=== PATIENT | female | born 1965 | race Caucasian/White ===

== ENCOUNTER 2024-06-21 20:19 | Inpatient (IN) | payer MEDICARE, OTHER ==
[~2024-06-21] VITALS: Ht 157.5 cm; Wt 57.0 kg
[2024-06-21] MEDS ORDERED: ACET-3117 PO (20:38)
[2024-06-21] MEDS ORDERED: OLAN15TA3 PO (20:38)
[2024-06-21] MEDS ORDERED: SENN8.6T19 PO (20:38)
[2024-06-21] MEDS ORDERED: OLAN10TA3 PO (20:38)
[2024-06-21] MEDS ORDERED: LITH450T2 PO (20:38)
[2024-06-21] MEDS ORDERED: CLON1TAB12 PO (20:38)
[2024-06-21] MEDS ORDERED: BISA10SU61 RC (20:38)
[2024-06-21] MEDS ORDERED: LITH300C2 PO (20:38)
[2024-06-21] MEDS ORDERED: CLON0.5T4 PO (20:38)
[2024-06-21 21:09] LABS: BASOPHILS % (AUTO) 0.4 % (0.0-2.0); EOSINOPHILS % (AUTO) 0.1 % (0.0-7.0); HEMATOCRIT 38.8 % (31.2-41.9); LYMPHOCYTES % (AUTO) 12.6 % (20.5-51.5); MEAN CORPUSCULAR HEMOGLOBIN 28.6 uug (24.7-32.8); MEAN CORPUSCULAR HGB CONC 33 g/dL (32.3-35.6); MEAN CORPUSCULAR VOLUME 85.9 fL (75.5-95.3); MONOCYTES # (AUTO) 0.8 K/uL (0.1-1.30); MONOCYTES % (AUTO) 10.1 % (0.0-11.0); NEUTROPHILS # (AUTO) 6.1 K/uL (1.8-8.9); NEUTROPHILS % (AUTO) 76.8 % (38.5-71.5); PLATELET COUNT (AUTO) 180 K/uL (179-408); RED BLOOD CELL COUNT(AUTO) 4.52 MIL/uL (3.63-4.92); RED CELL DISTRIBUTION WIDTH 14.5 % (12.3-17.7)
[2024-06-21 21:10] LABS: DIFFERENTIAL COMMENT 1
[2024-06-21 21:11] LABS: CALCIUM 10.2 mg/dL (8.5-10.1); CARBON DIOXIDE 35 mmol/L (21-32); CHLORIDE 100 mmol/L (98-107); CREATININE 0.8 mg/dL (0.6-1.3); GLUCOSE 101 mg/dL (74-106); POTASSIUM 3.5 mmol/L (3.5-5.1); SODIUM SERUM 140 mmol/L (136-145); UREA NITROGEN, BLOOD 16 mg/dL (7-18)
[2024-06-21] MEDS ORDERED: OLANZAPINE 10 MG VIAL IM ONE (21:22)
[2024-06-21 21:24] LABS: THYROID STIMULATING HORMONE 6.276 mIU/mL (0.358-3.740)
[2024-06-21 21:26] LABS: ETHANOL < 3 MG/DL (0-10)
[2024-06-21 21:31] LABS: ALANINE AMINOTRANSFERASE 17 U/L (14-59); ALBUMIN 3.1 g/dL (3.4-5.0); ALKALINE PHOSPHATASE 63 U/L (50-136); ASPARTATE AMINOTRANSFERASE 15 U/L (15-37); BILIRUBIN,DIRECT 0.1 mg/dL (0.0-0.2); BILIRUBIN,TOTAL 0.3 mg/dL (0.2-1.0); NT-PRO BNP 37 pg/mL (0-125); TOTAL PROTEIN, SERUM 6.7 g/dL (6.4-8.2)
[2024-06-21 21:32] LABS: ACETAMINOPHEN < 2.0 ug/mL (10-30)
[2024-06-21] MEDS: OLANZAPINE 10 MG VIAL IM ONE (22:00)
[2024-06-21 22:08] LABS: *BILIRUBIN,URIN NEGATIVE (NEGATIVE); *BLOOD, URINE 2+ (NEGATIVE); *COLOR,URINE Other (YELLOW); *KETONES,URINE NEGATIVE (NEGATIVE); *PROTEIN,URINE 1+ (NEGATIVE); *UROBILINOGEN,URINE 0.2 E.U./dl (NORMAL); LEUKOCYTE ESTERASE ,URINE 3+ (NEGATIVE); NITRITE, URINE NEGATIVE (NEGATIVE); PH,URINE 6.5 (5.0-8.0); UGLUCOSE NEGATIVE (NEGATIVE)
[2024-06-21 22:16] LABS: *CLARITY,URINE TURBID (CLEAR)
[2024-06-21] MEDS ORDERED: HALOPERIDOL LACTATE 5 MG/1 ML VIAL ONE (22:18)
[2024-06-21] MEDS: HALOPERIDOL LACTATE 5 MG/1 ML VIAL IM ONE (22:20)
[2024-06-21 22:27] LABS: BACTERIA,URINE MODERATE /HPF (NONE SEEN)
[2024-06-21 22:28] LABS: SQUAMOUS EPITHELIAL CELL,UR FEW /HPF (NONE SEEN); YEAST,URINE FEW /HPF (NONE SEEN)
[2024-06-21 22:29] LABS: MUCUS,URINE FEW /LPF (0-FEW)
[2024-06-21 22:30] LABS: *AMPHETAMINE, URINE NEGATIVE (NEGATIVE); *BARBITURATE, URINE NEGATIVE (NEGATIVE); *BENZODIAZEPINE, URINE NEGATIVE (NEGATIVE); *CANNABINOID, URINE NEGATIVE (NEGATIVE); *COCCAINE, URINE NEGATIVE (NEGATIVE); *OPIATE, URINE NEGATIVE (NEGATIVE); *PHENCYCLIDINE SCREEN,URINE NEGATIVE (NEGATIVE); FENTANYL, URINE NEGATIVE (NEGATIVE)
[2024-06-21] MEDS ORDERED: CEFTRIAXONE /D5W 50ML IVPB **ER PYXIS IV ONE (23:02)
[2024-06-21] MEDS: CEFTRIAXONE 1 G in IV DEXTROSE 5% 50 ML IV ONE (23:07)
[2024-06-21] MEDS ORDERED: IPRATROPIUM BROMIDE 0.5 MG/2.5 ML NEBU NEB PRN (23:15)
[2024-06-21] MEDS ORDERED: ONDANSETRON 4 MG/2 ML VIAL IV PRN (23:15)
[2024-06-21] MEDS ORDERED: ALBUTEROL SULFATE 2.5 MG/3 ML NEBU NEB PRN (23:15)
[2024-06-21] MEDS ORDERED: diphenhydrAMINE 50 MG/1 ML VIAL ONE (23:23)
[2024-06-21] MEDS: diphenhydrAMINE 50 MG/1 ML VIAL IM ONE (23:28)
[2024-06-21] MEDS ORDERED: Medication Not On Formulary EA (Acetaminophen 650 MG) PO PRN (23:30)
[2024-06-22] VITALS (8 sets, daily range): BP systolic 106–123; BP diastolic 61–86; TEMP 97.3–98.6; O2SAT 94–100
[2024-06-22] MEDS ORDERED: HALOPERIDOL LACTATE 5 MG/1 ML VIAL ONE (01:27)
[2024-06-22] MEDS: HALOPERIDOL LACTATE 5 MG/1 ML VIAL IM ONE (01:29)
[2024-06-22] MEDS: CLONAZEPAM 0.5 MG TABLET PO PRN (04:37)
[2024-06-22 07:06] LABS: BASOPHILS % (AUTO) 0.4 % (0.0-2.0); EOSINOPHILS % (AUTO) 0.2 % (0.0-7.0); HEMATOCRIT 37.2 % (31.2-41.9); HEMOGLOBIN 12.7 g/dL (10.9-14.3); LYMPHOCYTES % (AUTO) 15.8 % (20.5-51.5); MEAN CORPUSCULAR HEMOGLOBIN 29.1 uug (24.7-32.8); MEAN CORPUSCULAR HGB CONC 34 g/dL (32.3-35.6); MEAN CORPUSCULAR VOLUME 85.4 fL (75.5-95.3); MONOCYTES # (AUTO) 0.6 K/uL (0.1-1.30); MONOCYTES % (AUTO) 8.4 % (0.0-11.0); NEUTROPHILS % (AUTO) 75.2 % (38.5-71.5); PLATELET COUNT (AUTO) 179 K/uL (179-408); RED BLOOD CELL COUNT(AUTO) 4.35 MIL/uL (3.63-4.92); RED CELL DISTRIBUTION WIDTH 14.6 % (12.3-17.7); WHITE BLOOD COUNT (AUTO) 6.6 K/uL (3.8-11.8)
[2024-06-22 07:14] LABS: CALCIUM 9.9 mg/dL (8.5-10.1); CREATININE 0.8 mg/dL (0.6-1.3); MAGNESIUM 1.8 mg/dL (1.8-2.4); PHOSPHOROUS 3.9 mg/dL (2.5-4.9); POTASSIUM 3.4 mmol/L (3.5-5.1)
[2024-06-22 07:34] LABS: DIFFERENTIAL COMMENT 1
[2024-06-22 08:10] LABS: THYROID STIMULATING HORMONE 6.164 mIU/mL (0.358-3.740)
[2024-06-22] MEDS: CLONAZEPAM 1 MG TABLET PO SCH (08:19)
[2024-06-22] MEDS: OLANZAPINE 5 MG TABLET PO SCH (08:19)
[2024-06-22] MEDS: SENNOSIDES 1 TABLET PO SCH (08:20)
[2024-06-22 08:28] LABS: ABG BASE EXCESS 4.2 mmol/L (-2.0-3.0); ABG PCO2 50.2 mmHg (32.0-45.0); ABG PH 7.395 (7.350-7.450); ABG PO2 55.2 mmHg (83.0-108.0); ABG SITE RIGHT RADIAL; ABG TOTAL HEMOGLOBIN 13.4 G/dL (12.0-16.0); AaDO2 88.2 mmHg; COHb 0.9 % (0.5-1.5); O2Hb 87.9 % (94.0-98.0)
[2024-06-22] MEDS: POTASSIUM CHLORIDE 20 MEQ TAB.PRT.SR PO ONE (09:32)
[2024-06-22] MEDS: ACETAzolamide 250 MG TABLET PO SCH (09:33)
[2024-06-22] MEDS: BISACODYL 10 MG SUPP.RECT RC PRN (09:33)
[2024-06-22 13:48] LABS: FREE T4 (FREE THYROXINE) 1.03 ng/dL (0.76-1.46)
[2024-06-22] MEDS ORDERED: POLY17PO4 PO (16:28)
[2024-06-22] MEDS ORDERED: BISA-79 PO (16:28)
[2024-06-22] MEDS ORDERED: CHOL-35 PO (16:28)
[2024-06-22] MEDS ORDERED: PALI156D IM (16:28)
[2024-06-22] MEDS ORDERED: PANT40TA49 PO (16:28)
[2024-06-22] MEDS ORDERED: MULT-1045 PO (16:28)
[2024-06-22] MEDS: CEFTRIAXONE 1 G in IV DEXTROSE 5% 50 ML IV SCH (20:20)
[2024-06-22] MEDS ORDERED: OLANZAPINE 5 MG TABLET PO SCH (21:00)
[2024-06-22] MEDS: ACETAMINOPHEN 325 MG TABLET PO PRN (23:14)
[2024-06-22] MEDS: LORAZEPAM 2 MG/1 ML VIAL IV PRN (23:41)
[2024-06-23 04:07] VITALS: O2SAT 98
[2024-06-23 05:04] VITALS: BP 120/61; TEMP 97.5; O2SAT 99
[2024-06-23] MEDS: PANTOPRAZOLE SODIUM 40 MG TABLET.DR PO SCH (06:04)
[2024-06-23 06:20] LABS: BASOPHILS % (AUTO) 0.1 % (0.0-2.0); EOSINOPHILS # (AUTO) 0.5 K/uL (0.0-0.7); EOSINOPHILS % (AUTO) 7.6 % (0.0-7.0); HEMATOCRIT 36.1 % (31.2-41.9); LYMPHOCYTES % (AUTO) 14.9 % (20.5-51.5); MEAN CORPUSCULAR HGB CONC 33 g/dL (32.3-35.6); MEAN CORPUSCULAR VOLUME 86.9 fL (75.5-95.3); MONOCYTES # (AUTO) 0.4 K/uL (0.1-1.30); MONOCYTES % (AUTO) 5.8 % (0.0-11.0); NEUTROPHILS # (AUTO) 4.7 K/uL (1.8-8.9); NEUTROPHILS % (AUTO) 71.6 % (38.5-71.5); PLATELET COUNT (AUTO) 178 K/uL (179-408); RED BLOOD CELL COUNT(AUTO) 4.16 MIL/uL (3.63-4.92); RED CELL DISTRIBUTION WIDTH 15.1 % (12.3-17.7); WHITE BLOOD COUNT (AUTO) 6.6 K/uL (3.8-11.8)
[2024-06-23 06:51] LABS: CALCIUM 9.3 mg/dL (8.5-10.1); CREATININE 0.9 mg/dL (0.6-1.3); MAGNESIUM 1.9 mg/dL (1.8-2.4); PHOSPHOROUS 4.3 mg/dL (2.5-4.9)
[2024-06-23 07:05] LABS: POTASSIUM 3.4 mmol/L (3.5-5.1)
[2024-06-23 07:28] LABS: DIFFERENTIAL COMMENT 1
[2024-06-23] MEDS ORDERED: ACET250T9 PO (07:59)
[2024-06-23 08:00] VITALS: BP 102/72; TEMP 97.2; O2SAT 99
[2024-06-23] MEDS ORDERED: DOXY-326 PO (08:02)
[2024-06-23] MEDS: MULTIVITAMINS,THERAPEUTIC TABLET PO SCH (08:35)
[2024-06-23] MEDS: MIRALAX 17 GM POWD.PACK PO SCH (08:35)
[2024-06-23] MEDS: CHOLECALCIFEROL 1,000 UNIT TABLET PO SCH (08:35)
[2024-06-23] MEDS: POTASSIUM CHLORIDE 20 MEQ TAB.PRT.SR PO ONE (09:33)
[2024-06-23 12:00] VITALS: BP 114/64; TEMP 97.6; O2SAT 99
== END 2024-06-23 14:09 | DRG 189 ==
LOC: ER 20:37 → TELE3 06-22 00:44
PROVIDERS: ADMIT Nurse Practitioner Family; ATTEND Internal Medicine
DX: J96.21 Acute and chronic respiratory failure with hypoxia (principal); N39.0 Urinary tract infection, site not specified; G93.40 Encephalopathy, unspecified; J98.11 Atelectasis; J96.12 Chronic respiratory failure with hypercapnia; Z87.891 Personal history of nicotine dependence; Z22.322 Carrier or suspected carrier of Methicillin resistant Staphylococcus aureus; B96.89 Other specified bacterial agents as the cause of diseases classified elsewhere; J43.9 Emphysema, unspecified; Z91.199 Patient's noncompliance with other medical treatment and regimen due to unspecified reason; Z87.01 Personal history of pneumonia (recurrent); G20.A1 Parkinson's disease without dyskinesia, without mention of fluctuations; R47.1 Dysarthria and anarthria; E87.6 Hypokalemia; E03.9 Hypothyroidism, unspecified; B96.20 Unspecified Escherichia coli [E. coli] as the cause of diseases classified elsewhere; D71 Functional disorders of polymorphonuclear neutrophils; R45.1 Restlessness and agitation; Z79.899 Other long term (current) drug therapy; Z78.1 Physical restraint status; F25.9 Schizoaffective disorder, unspecified
CPT/HCPCS: 36415; 36600; 70030-TC; 71045; 71250; 82803; 83735; 84100; 84443; 84481; 85025; 86140; 87040; A4606; A4663; C1758; G0378; G0480; J0696; J1200; J1630; J2060; J2358; J8499

== ENCOUNTER 2024-06-23 14:10 | Inpatient (IN) | payer MEDICARE, OTHER ==
[~2024-06-23] VITALS: Ht 167.6 cm; Wt 59.0 kg
[~2024-06-23 14:10] MED LIST: ACET-3117 PO; ACET250T9 PO; BISA-79 PO; BISA10SU61 RC; CHOL-35 PO; DOXY-326 PO; MULT-1045 PO; PALI156D IM; PANT40TA49 PO; POLY17PO4 PO; SENN8.6T19 PO
[2024-06-23] MEDS ORDERED: MAGNESIUM HYDROXIDE 30 ML LIQUID UDC PO PRN (15:30)
[2024-06-23] MEDS ORDERED: MAG HYDROX/AL HYDROX/SIMETH 30 ML LIQUID UDC PO PRN (15:30)
[2024-06-23] MEDS ORDERED: ZOLPIDEM 5 MG TABLET PO PRN ×2 (15:30→16:00)
[2024-06-23 18:09] VITALS: BP 112/61; TEMP 98.2; O2SAT 97
[2024-06-23 19:58] VITALS: BP 103/67; TEMP 98; O2SAT 96
[2024-06-23] MEDS: ZOLPIDEM 5 MG TABLET PO PRN (22:43)
[2024-06-24] VITALS (7 sets, daily range): BP systolic 116–147; BP diastolic 79–84; TEMP 97.6–98.1; O2SAT 95–99
[2024-06-24] MEDS ORDERED: BISACODYL 10 MG SUPP.RECT RC PRN (00:30)
[2024-06-24] MEDS ORDERED: BISACODYL 5 MG TABLET.DR PO PRN (00:30)
[2024-06-24] MEDS ORDERED: ACETAMINOPHEN 325 MG TABLET PO PRN (00:45)
[2024-06-24] MEDS: ALBUTEROL SULFATE 2.5 MG/3 ML NEBU NEB PRN (00:58)
[2024-06-24] MEDS: IPRATROPIUM BROMIDE 0.5 MG/2.5 ML NEBU NEB PRN (00:58)
[2024-06-24] MEDS: PANTOPRAZOLE SODIUM 40 MG TABLET.DR PO SCH (06:10)
[2024-06-24 07:52] LABS: ALBUMIN 3.2 g/dL (3.4-5.0); BILIRUBIN,DIRECT 0.1 mg/dL (0.0-0.2); BILIRUBIN,TOTAL 0.2 mg/dL (0.2-1.0); CALCIUM 9.2 mg/dL (8.5-10.1); CREATININE 0.8 mg/dL (0.6-1.3); POTASSIUM 3.3 mmol/L (3.5-5.1); TOTAL PROTEIN, SERUM 6.9 g/dL (6.4-8.2)
[2024-06-24] MEDS: CHOLECALCIFEROL 1,000 UNIT TABLET PO SCH (08:31)
[2024-06-24] MEDS: LORAZEPAM 0.5 MG TABLET PO PRN ×2 (08:31→15:28)
[2024-06-24] MEDS: MIRALAX 17 GM POWD.PACK PO SCH (08:31)
[2024-06-24] MEDS: MULTIVITAMINS,THERAPEUTIC TABLET PO SCH (08:31)
[2024-06-24] MEDS: SENNOSIDES 1 TABLET PO SCH (08:31)
[2024-06-24] MEDS: ACETAzolamide 250 MG TABLET PO SCH (08:53)
[2024-06-24] MEDS: DOXYCYCLINE HYCLATE 100 MG TABLET PO SCH (08:53)
[2024-06-24] MEDS: LITHIUM CARBONATE 150 MG CAPSULE PO SCH (10:25)
[2024-06-24] MEDS: POTASSIUM CHLORIDE 20 MEQ POWDER PACKET PO SCH (10:25)
[2024-06-24] MEDS: ACETAMINOPHEN 325 MG TABLET PO PRN (10:25)
[2024-06-24] MEDS: risperiDONE 1 MG TABLET PO SCH (10:25)
[2024-06-24] MEDS: MUPIROCIN 2% OINT 22 GM TUBE NS SCH (10:25)
[2024-06-24] MEDS: TRAZODONE 50 MG TABLET PO PRN (22:12)
[2024-06-25 07:32] LABS: BASOPHILS % (AUTO) 0.6 % (0.0-2.0); EOSINOPHILS % (AUTO) 0.2 % (0.0-7.0); HEMATOCRIT 37.5 % (31.2-41.9); HEMOGLOBIN 12.5 g/dL (10.9-14.3); LYMPHOCYTES # (AUTO) 0.9 K/uL (0.8-4.8); LYMPHOCYTES % (AUTO) 17.2 % (20.5-51.5); MEAN CORPUSCULAR HGB CONC 33 g/dL (32.3-35.6); MEAN CORPUSCULAR VOLUME 87.2 fL (75.5-95.3); MONOCYTES # (AUTO) 0.4 K/uL (0.1-1.30); MONOCYTES % (AUTO) 7.5 % (0.0-11.0); NEUTROPHILS % (AUTO) 74.5 % (38.5-71.5); PLATELET COUNT (AUTO) 175 K/uL (179-408); RED BLOOD CELL COUNT(AUTO) 4.31 MIL/uL (3.63-4.92); RED CELL DISTRIBUTION WIDTH 15.3 % (12.3-17.7); WHITE BLOOD COUNT (AUTO) 5.3 K/uL (3.8-11.8)
[2024-06-25 07:44] LABS: DIFFERENTIAL COMMENT 1
[2024-06-25 07:46] LABS: CALCIUM 9.2 mg/dL (8.5-10.1); CREATININE 0.8 mg/dL (0.6-1.3); MAGNESIUM 1.9 mg/dL (1.8-2.4); PHOSPHOROUS 4.4 mg/dL (2.5-4.9); POTASSIUM 3.8 mmol/L (3.5-5.1)
[2024-06-25 07:56] VITALS: BP 110/77; TEMP 98; O2SAT 98
[2024-06-25] MEDS ORDERED: OLANZAPINE ZYDIS 5 MG TAB.RAPDIS PO SCH (10:00)
[2024-06-25] MEDS: DIVALPROEX 125 MG TABLET.DR PO SCH (12:06)
[2024-06-25] MEDS: OLANZAPINE ZYDIS 5 MG TAB.RAPDIS PO PRN (14:49)
[2024-06-25 15:10] VITALS: BP 130/76; TEMP 98; O2SAT 96
[2024-06-25 19:47] VITALS: BP 111/68; TEMP 98.1; O2SAT 96
[2024-06-25] MEDS: risperiDONE 1 MG TABLET PO SCH (20:58)
[2024-06-26 08:08] VITALS: BP 134/85; TEMP 98; O2SAT 96
[2024-06-26 16:11] VITALS: BP 129/66; TEMP 98; O2SAT 96
[2024-06-26 20:11] VITALS: BP 130/66; TEMP 98.1; O2SAT 95
[2024-06-26] MEDS: LITHIUM CARBONATE 150 MG CAPSULE PO ONE (21:22)
[2024-06-27 05:22] LABS: ABG BASE EXCESS -2.7 mmol/L (-2.0-3.0); ABG HCO3 22.4 mmol/L (21.0-28.0); ABG PCO2 39.9 mmHg (32.0-45.0); ABG PH 7.367 (7.350-7.450); ABG PO2 68.5 mmHg (83.0-108.0); ABG SITE LEFT RADIAL; ABG TOTAL HEMOGLOBIN 13.2 G/dL (12.0-16.0); AaDO2 93.2 mmHg; COHb 0.4 % (0.5-1.5); MetHb 0.1 % (0.0-1.5)
[2024-06-27 07:26] LABS: BASOPHILS % (AUTO) 0.3 % (0.0-2.0); EOSINOPHILS % (AUTO) 0.1 % (0.0-7.0); HEMOGLOBIN 12.4 g/dL (10.9-14.3); LYMPHOCYTES # (AUTO) 1.2 K/uL (0.8-4.8); LYMPHOCYTES % (AUTO) 18.8 % (20.5-51.5); MEAN CORPUSCULAR HEMOGLOBIN 29.3 uug (24.7-32.8); MEAN CORPUSCULAR HGB CONC 34 g/dL (32.3-35.6); MONOCYTES # (AUTO) 0.4 K/uL (0.1-1.30); MONOCYTES % (AUTO) 6.5 % (0.0-11.0); NEUTROPHILS # (AUTO) 4.7 K/uL (1.8-8.9); NEUTROPHILS % (AUTO) 74.3 % (38.5-71.5); PLATELET COUNT (AUTO) 212 K/uL (179-408); RED BLOOD CELL COUNT(AUTO) 4.25 MIL/uL (3.63-4.92); RED CELL DISTRIBUTION WIDTH 15.3 % (12.3-17.7); WHITE BLOOD COUNT (AUTO) 6.3 K/uL (3.8-11.8)
[2024-06-27 07:40] LABS: CALCIUM 9.3 mg/dL (8.5-10.1); CREATININE 0.7 mg/dL (0.6-1.3); MAGNESIUM 1.9 mg/dL (1.8-2.4); POTASSIUM 3.8 mmol/L (3.5-5.1)
[2024-06-27 07:58] LABS: DIFFERENTIAL COMMENT 1
[2024-06-27] MEDS: LITHIUM CARBONATE 300 MG CAPSULE PO SCH (08:44)
[2024-06-27 09:16] VITALS: BP 148/78; TEMP 98; O2SAT 98
[2024-06-27] MEDS: levoFLOXacin 500 MG TABLET PO SCH (15:51)
[2024-06-27 16:19] VITALS: BP 97/64; TEMP 98; O2SAT 98
[2024-06-27] MEDS: ENSURE ENLIVE (VAN) 240 ML LIQUID PO SCH (16:41)
[2024-06-27 19:02] VITALS: O2SAT 95
[2024-06-27 19:12] VITALS: O2SAT 99
[2024-06-27 19:45] VITALS: BP 120/80; TEMP 97.7; O2SAT 97
[2024-06-28 07:56] VITALS: BP 135/66; TEMP 98; O2SAT 98
[2024-06-28] MEDS: OLANZAPINE 10 MG VIAL IM ONE (10:02)
[2024-06-28] MEDS: risperiDONE-M 0.5 MG TAB.RAPDIS PO SCH ×2 (13:43→21:16)
[2024-06-28 15:20] VITALS: BP 131/71; TEMP 98; O2SAT 96
[2024-06-28] MEDS: DIVALPROEX SPRINKLE 125 MG CAP.SPRINK PO SCH (16:25)
[2024-06-28] MEDS: OLANZAPINE ZYDIS 5 MG TAB.RAPDIS PO SCH (16:25)
[2024-06-28 20:00] VITALS: BP 103/75; TEMP 97.4; O2SAT 95
[2024-06-29 09:06] VITALS: BP 117/68; TEMP 98; O2SAT 96
[2024-06-29 15:31] VITALS: BP 112/68; TEMP 98; O2SAT 96
[2024-06-29 20:00] VITALS: BP 100/62; TEMP 98.2; O2SAT 89
[2024-06-29 22:08] VITALS: O2SAT 95
[2024-06-29 22:21] VITALS: O2SAT 98
[2024-06-29 22:23] VITALS: O2SAT 99
[2024-06-30 07:30] VITALS: BP 109/70; TEMP 98; O2SAT 98
[2024-06-30 09:17] LABS: BASOPHILS % (AUTO) 0.4 % (0.0-2.0); EOSINOPHILS % (AUTO) 0.1 % (0.0-7.0); HEMATOCRIT 38.5 % (31.2-41.9); HEMOGLOBIN 12.7 g/dL (10.9-14.3); LYMPHOCYTES # (AUTO) 1.3 K/uL (0.8-4.8); LYMPHOCYTES % (AUTO) 22.7 % (20.5-51.5); MEAN CORPUSCULAR HEMOGLOBIN 28.6 uug (24.7-32.8); MEAN CORPUSCULAR HGB CONC 33 g/dL (32.3-35.6); MEAN CORPUSCULAR VOLUME 86.8 fL (75.5-95.3); MONOCYTES # (AUTO) 0.5 K/uL (0.1-1.30); MONOCYTES % (AUTO) 8.6 % (0.0-11.0); NEUTROPHILS # (AUTO) 3.9 K/uL (1.8-8.9); NEUTROPHILS % (AUTO) 68.2 % (38.5-71.5); PLATELET COUNT (AUTO) 234 K/uL (179-408); RED BLOOD CELL COUNT(AUTO) 4.43 MIL/uL (3.63-4.92); RED CELL DISTRIBUTION WIDTH 15.6 % (12.3-17.7); WHITE BLOOD COUNT (AUTO) 5.7 K/uL (3.8-11.8)
[2024-06-30 09:22] LABS: DIFFERENTIAL COMMENT 1
[2024-06-30 09:36] LABS: CALCIUM 9.5 mg/dL (8.5-10.1); CREATININE 0.8 mg/dL (0.6-1.3); MAGNESIUM 1.9 mg/dL (1.8-2.4); PHOSPHOROUS 4.7 mg/dL (2.5-4.9)
[2024-06-30 09:42] LABS: POTASSIUM 3.3 mmol/L (3.5-5.1)
[2024-06-30 10:22] VITALS: BP 112/68; TEMP 98; O2SAT 96
[2024-06-30 15:45] VITALS: BP 118/78; TEMP 98; O2SAT 96
[2024-06-30 20:00] VITALS: BP 126/86; TEMP 98; O2SAT 93
[2024-06-30] MEDS: TRAZODONE 50 MG TABLET PO PRN (22:28)
[2024-07-01 07:53] VITALS: BP 97/66; TEMP 97.8; O2SAT 98
[2024-07-01] MEDS: POTASSIUM CHLORIDE 20 MEQ TAB.PRT.SR PO SCH (08:14)
[2024-07-01] MEDS: DIVALPROEX SPRINKLE 125 MG CAP.SPRINK PO SCH (12:27)
[2024-07-01] MEDS: BENZTROPINE MESYLATE 0.5 MG TABLET PO SCH (12:27)
[2024-07-01 16:00] VITALS: BP 141/72; TEMP 98.1; O2SAT 95
[2024-07-01] MEDS: OLANZAPINE 2.5 MG TABLET PO SCH (16:08)
[2024-07-01] MEDS ORDERED: OLANZAPINE ZYDIS 5 MG TAB.RAPDIS PO SCH (17:00)
[2024-07-01 20:00] VITALS: BP 109/64; TEMP 98.2; O2SAT 89
[2024-07-02 07:22] LABS: BASOPHILS % (AUTO) 0.4 % (0.0-2.0); EOSINOPHILS % (AUTO) 0.1 % (0.0-7.0); HEMATOCRIT 36.5 % (31.2-41.9); LYMPHOCYTES % (AUTO) 15.2 % (20.5-51.5); MEAN CORPUSCULAR HEMOGLOBIN 28.9 uug (24.7-32.8); MEAN CORPUSCULAR HGB CONC 33 g/dL (32.3-35.6); MEAN CORPUSCULAR VOLUME 87.6 fL (75.5-95.3); MONOCYTES # (AUTO) 0.5 K/uL (0.1-1.30); MONOCYTES % (AUTO) 7.8 % (0.0-11.0); NEUTROPHILS # (AUTO) 5.1 K/uL (1.8-8.9); NEUTROPHILS % (AUTO) 76.5 % (38.5-71.5); PLATELET COUNT (AUTO) 210 K/uL (179-408); RED BLOOD CELL COUNT(AUTO) 4.16 MIL/uL (3.63-4.92); RED CELL DISTRIBUTION WIDTH 16.4 % (12.3-17.7); WHITE BLOOD COUNT (AUTO) 6.7 K/uL (3.8-11.8)
[2024-07-02 07:30] LABS: DIFFERENTIAL COMMENT 1
[2024-07-02 07:51] LABS: CALCIUM 9.4 mg/dL (8.5-10.1); CREATININE 0.7 mg/dL (0.6-1.3); MAGNESIUM 1.9 mg/dL (1.8-2.4); PHOSPHOROUS 4.3 mg/dL (2.5-4.9)
[2024-07-02 07:54] VITALS: BP 101/62; TEMP 98.2; O2SAT 94
[2024-07-02 07:55] LABS: POTASSIUM 4.3 mmol/L (3.5-5.1)
[2024-07-02] MEDS: LORAZEPAM 0.5 MG TABLET PO SCH (12:11)
[2024-07-02 15:41] VITALS: BP 90/54; TEMP 98; O2SAT 99
[2024-07-02 20:00] VITALS: BP 99/69; TEMP 98; O2SAT 96
[2024-07-02] MEDS: risperiDONE-M 0.5 MG TAB.RAPDIS PO SCH (20:35)
[2024-07-03] MEDS: TEMAZEPAM 7.5 MG CAPSULE PO PRN (01:26)
[2024-07-03 08:06] VITALS: BP 120/69; TEMP 98.2; O2SAT 98
[2024-07-03] MEDS ORDERED: TEMAZEPAM 7.5 MG CAPSULE PO PRN (09:15)
[2024-07-03] MEDS ORDERED: OLANZAPINE ZYDIS 5 MG TAB.RAPDIS PO PRN (09:15)
[2024-07-03] MEDS: OLANZAPINE ZYDIS 5 MG TAB.RAPDIS PO PRN (12:17)
[2024-07-03] MEDS: risperiDONE-M 0.5 MG TAB.RAPDIS PO SCH (12:18)
[2024-07-03 16:04] VITALS: BP 90/54; TEMP 98; O2SAT 98
[2024-07-03] MEDS: risperiDONE 1 MG TABLET PO SCH (16:56)
[2024-07-03] MEDS ORDERED: risperiDONE 0.25 MG TABLET PO SCH (17:00)
[2024-07-03 20:00] VITALS: BP 111/68; TEMP 98; O2SAT 95
[2024-07-03] MEDS: TEMAZEPAM 15 MG CAPSULE PO PRN (21:36)
[2024-07-04 07:02] LABS: BASOPHILS % (AUTO) 0.4 % (0.0-2.0); EOSINOPHILS % (AUTO) 0.1 % (0.0-7.0); HEMATOCRIT 35.3 % (31.2-41.9); HEMOGLOBIN 11.8 g/dL (10.9-14.3); LYMPHOCYTES # (AUTO) 1.1 K/uL (0.8-4.8); LYMPHOCYTES % (AUTO) 20.2 % (20.5-51.5); MEAN CORPUSCULAR HEMOGLOBIN 29.3 uug (24.7-32.8); MEAN CORPUSCULAR HGB CONC 34 g/dL (32.3-35.6); MEAN CORPUSCULAR VOLUME 87.2 fL (75.5-95.3); MONOCYTES # (AUTO) 0.4 K/uL (0.1-1.30); MONOCYTES % (AUTO) 7.7 % (0.0-11.0); NEUTROPHILS % (AUTO) 71.6 % (38.5-71.5); PLATELET COUNT (AUTO) 210 K/uL (179-408); RED BLOOD CELL COUNT(AUTO) 4.05 MIL/uL (3.63-4.92); RED CELL DISTRIBUTION WIDTH 16.1 % (12.3-17.7); WHITE BLOOD COUNT (AUTO) 5.6 K/uL (3.8-11.8)
[2024-07-04 07:14] LABS: DIFFERENTIAL COMMENT 1
[2024-07-04 07:26] LABS: BILIRUBIN,TOTAL 0.2 mg/dL (0.2-1.0); CALCIUM 9.1 mg/dL (8.5-10.1); CREATININE 0.6 mg/dL (0.6-1.3); POTASSIUM 3.7 mmol/L (3.5-5.1); TOTAL PROTEIN, SERUM 6.2 g/dL (6.4-8.2)
[2024-07-04] MEDS: POTASSIUM CHLORIDE 20 MEQ TAB.PRT.SR PO ONE (08:00)
[2024-07-04 08:14] VITALS: BP 95/68; TEMP 98; O2SAT 96
[2024-07-04 15:42] VITALS: BP 100/62; TEMP 98; O2SAT 96
[2024-07-04] MEDS: DIVALPROEX SPRINKLE 125 MG CAP.SPRINK PO SCH (20:21)
[2024-07-04 20:24] VITALS: BP 106/60; TEMP 97.9; O2SAT 95
[2024-07-05 08:01] VITALS: BP 126/71; TEMP 98; O2SAT 98
[2024-07-05 15:36] VITALS: BP 99/62; TEMP 98; O2SAT 96
[2024-07-05] MEDS: BENZTROPINE MESYLATE 1 MG TABLET PO SCH (17:56)
[2024-07-05 20:08] VITALS: BP 112/64; TEMP 97.9; O2SAT 95
[2024-07-06 07:45] LABS: BASOPHILS % (AUTO) 0.3 % (0.0-2.0); EOSINOPHILS % (AUTO) 0.1 % (0.0-7.0); HEMATOCRIT 33.9 % (31.2-41.9); HEMOGLOBIN 11.5 g/dL (10.9-14.3); LYMPHOCYTES % (AUTO) 18.4 % (20.5-51.5); MEAN CORPUSCULAR HEMOGLOBIN 29.3 uug (24.7-32.8); MEAN CORPUSCULAR HGB CONC 34 g/dL (32.3-35.6); MEAN CORPUSCULAR VOLUME 86.4 fL (75.5-95.3); MONOCYTES # (AUTO) 0.5 K/uL (0.1-1.30); MONOCYTES % (AUTO) 8.3 % (0.0-11.0); NEUTROPHILS # (AUTO) 4.1 K/uL (1.8-8.9); NEUTROPHILS % (AUTO) 72.9 % (38.5-71.5); PLATELET COUNT (AUTO) 216 K/uL (179-408); RED BLOOD CELL COUNT(AUTO) 3.92 MIL/uL (3.63-4.92); RED CELL DISTRIBUTION WIDTH 15.9 % (12.3-17.7); WHITE BLOOD COUNT (AUTO) 5.6 K/uL (3.8-11.8)
[2024-07-06 07:54] LABS: DIFFERENTIAL COMMENT 1
[2024-07-06 07:58] LABS: CALCIUM 9.2 mg/dL (8.5-10.1); CREATININE 0.7 mg/dL (0.6-1.3); MAGNESIUM 2.2 mg/dL (1.8-2.4); PHOSPHOROUS 4.4 mg/dL (2.5-4.9); POTASSIUM 3.9 mmol/L (3.5-5.1)
[2024-07-06 07:59] VITALS: BP 103/65; TEMP 97.7; O2SAT 96
[2024-07-06 16:07] VITALS: BP 90/65; TEMP 97.9; O2SAT 96
[2024-07-06 20:12] VITALS: BP 101/68; TEMP 97.9; O2SAT 95
[2024-07-07 06:35] VITALS: O2SAT 95
[2024-07-07 06:45] VITALS: O2SAT 99
[2024-07-07 07:50] VITALS: BP 106/54; TEMP 97.4; O2SAT 99
[2024-07-07 15:47] VITALS: BP 102/62; TEMP 97.6; O2SAT 97
[2024-07-07] MEDS: risperiDONE 2 MG TABLET PO SCH (16:44)
[2024-07-07] MEDS ORDERED: risperiDONE 1 MG TABLET PO SCH (17:00)
[2024-07-07 21:44] VITALS: BP 110/69; TEMP 98; O2SAT 98
[2024-07-08 08:00] VITALS: BP 108/64; TEMP 98.2; O2SAT 93
[2024-07-08] MEDS: OLANZAPINE ZYDIS 5 MG TAB.RAPDIS PO ONE (11:50)
[2024-07-08 15:07] VITALS: BP 108/74; TEMP 98.3; O2SAT 95
[2024-07-08] MEDS: OLANZAPINE ZYDIS 5 MG TAB.RAPDIS PO SCH (17:32)
[2024-07-08] MEDS: risperiDONE 1 MG TABLET PO SCH (17:33)
[2024-07-08 20:00] VITALS: BP 108/74; TEMP 97.7; O2SAT 94
[2024-07-08] MEDS: risperiDONE 2 MG TABLET PO SCH (21:03)
[2024-07-09 10:53] VITALS: BP 116/78; TEMP 97.5; O2SAT 92
[2024-07-09 15:40] VITALS: BP 107/67; TEMP 98.4; O2SAT 94
[2024-07-09 20:03] VITALS: BP 110/76; TEMP 97.6; O2SAT 94
[2024-07-10 07:58] VITALS: BP 120/61; TEMP 98; O2SAT 98
[2024-07-10] MEDS: OLANZAPINE 2.5 MG TABLET PO SCH (09:38)
[2024-07-10 15:22] VITALS: BP 115/75; TEMP 98; O2SAT 98
[2024-07-10 19:48] VITALS: BP 118/64; TEMP 98.1; O2SAT 96
[2024-07-11 07:26] LABS: BASOPHILS % (AUTO) 0.3 % (0.0-2.0); EOSINOPHILS % (AUTO) 0.1 % (0.0-7.0); HEMATOCRIT 33.6 % (31.2-41.9); HEMOGLOBIN 11.4 g/dL (10.9-14.3); LYMPHOCYTES # (AUTO) 1.1 K/uL (0.8-4.8); LYMPHOCYTES % (AUTO) 16.2 % (20.5-51.5); MEAN CORPUSCULAR HEMOGLOBIN 29.5 uug (24.7-32.8); MEAN CORPUSCULAR HGB CONC 34 g/dL (32.3-35.6); MEAN CORPUSCULAR VOLUME 86.6 fL (75.5-95.3); MONOCYTES # (AUTO) 0.8 K/uL (0.1-1.30); MONOCYTES % (AUTO) 12.2 % (0.0-11.0); NEUTROPHILS # (AUTO) 4.9 K/uL (1.8-8.9); NEUTROPHILS % (AUTO) 71.2 % (38.5-71.5); PLATELET COUNT (AUTO) 220 K/uL (179-408); RED BLOOD CELL COUNT(AUTO) 3.88 MIL/uL (3.63-4.92); RED CELL DISTRIBUTION WIDTH 15.9 % (12.3-17.7); WHITE BLOOD COUNT (AUTO) 6.8 K/uL (3.8-11.8)
[2024-07-11 07:45] LABS: CALCIUM 9.3 mg/dL (8.5-10.1); CREATININE 0.7 mg/dL (0.6-1.3); MAGNESIUM 1.6 mg/dL (1.8-2.4); PHOSPHOROUS 4.6 mg/dL (2.5-4.9); POTASSIUM 3.7 mmol/L (3.5-5.1)
[2024-07-11 07:50] LABS: DIFFERENTIAL COMMENT 1
[2024-07-11 09:04] VITALS: BP 120/72; TEMP 98; O2SAT 96
[2024-07-11] MEDS: MAGNESIUM OXIDE 400 MG TABLET PO ONE (09:10)
== END 2024-07-11 13:02 | DRG 885 ==
LOC: GPS 14:10
PROVIDERS: ADMIT Psychiatry & Neurology Psychosomatic Medicine; ATTEND Internal Medicine
DX: F25.0 Schizoaffective disorder, bipolar type (principal); J96.11 Chronic respiratory failure with hypoxia; N39.0 Urinary tract infection, site not specified; J98.11 Atelectasis; E87.6 Hypokalemia; Z87.01 Personal history of pneumonia (recurrent); Z85.118 Personal history of other malignant neoplasm of bronchus and lung; F17.210 Nicotine dependence, cigarettes, uncomplicated; J43.9 Emphysema, unspecified; R79.89 Other specified abnormal findings of blood chemistry; Z22.322 Carrier or suspected carrier of Methicillin resistant Staphylococcus aureus; E03.9 Hypothyroidism, unspecified; R25.1 Tremor, unspecified; G47.00 Insomnia, unspecified; Z71.6 Tobacco abuse counseling; Z79.899 Other long term (current) drug therapy
CPT/HCPCS: 36415; 36600; 70030-TC; 70450; 80164; 82803; 83735; 84100; 85025; 94640; 94664; J2358; J3590; J8499